=== PATIENT | female | born 1990 | race Caucasian/White ===

== ENCOUNTER 2019-12-22 05:15 | Inpatient (IN) | payer OTHER ==
[2019-12-22] MEDS ORDERED: Sodium Chloride 0.9% 10 ML SDV IV PRN (05:19)
[2019-12-22] MEDS ORDERED: Citric Acid/Sodium Citrate Solution 30 ML Cup PO ONE (05:19)
[2019-12-22] MEDS ORDERED: Sodium Chloride 0.9% 10 ML Syringe FLUSH PRN (05:19)
[2019-12-22] MEDS ORDERED: ceFAZolin 2 GM in Premix Bag 1 BAG IV ONE (05:19)
[2019-12-22] MEDS ORDERED: Sodium Chloride 0.9% 2.5 ML Syringe FLUSH PRN (05:19)
[2019-12-22] MEDS ORDERED: Oxytocin/0.9 % Sodium Chloride 30 UNIT/500 ML BAG IV SCH (05:30)
[2019-12-22] MEDS: Lactated Ringers 1,000 ML IV SCH ×2 (06:00→07:17)
[2019-12-22] MEDS ORDERED: Morphine PF 10 MG/10 ML SDV ONE (07:10)
[2019-12-22] MEDS ORDERED: Ondansetron 4 MG/2 ML SDV ONE (07:15)
[2019-12-22] MEDS ORDERED: Sodium Chloride 0.9% 20 ML ONE (07:15)
[2019-12-22] MEDS ORDERED: Oxytocin 10 Units/1 ML SDV ONE (07:15)
[2019-12-22] MEDS ORDERED: ceFAZolin 1 GM Vial ONE (07:15)
[2019-12-22] MEDS ORDERED: Ketorolac 30 MG/ML SDV ONE (07:15)
[2019-12-22] MEDS ORDERED: Phenylephrine 1% 10 MG/ML SDV ONE (07:26)
[2019-12-22] MEDS ORDERED: Famotidine 20 MG/2 ML SDV IVPUSH ONE (07:30)
[2019-12-22] MEDS ORDERED: Metoclopramide 10 MG/2 ML SDV IVPUSH ONE (07:30)
[2019-12-22] MEDS ORDERED: Citric Acid/Sodium Citrate Solution 30 ML Cup ONE (07:36)
--- NOTE | 2019-12-22 07:41 | PCM.PREANE ---
Preanesthetic Assessment - Anesthesia/Transfusion/Family Hx Anesthesia History: Prior Anesthesia Without Reaction Family History of Anesthesia Reaction: No Transfusion History: No Prior Transfusion(s) - Review of Systems General: No Symptoms Pulmonary: No Symptoms Cardiovascular: No Symptoms Gastrointestinal: No Symptoms Neurological: No Symptoms Other: Reports: None - Physical Assessment NPO Status Date: 12/21/19 Height: 5 ft 5 in Weight: 87.997 kg ASA Class: 2 Mental Status: Alert & Oriented x3 Airway Class: Mallampati = 1 Dentition: Reports: Normal Dentition ROM/Head Extension: Full Lungs: Clear to Auscultation, Normal Respiratory Effort Cardiovascular: Regular Rate, Regular Rhythm - Lab Values: Laboratory Last Values WBC 5.87 K/uL (4.0-11.0) 12/22/19 05:45 RBC 4.50 M/uL (4.30-5.90) 12/22/19 05:45 Hgb 12.3 g/dL (12.0-16.0) 12/22/19 05:45 Hct 37.0 % (36.0-46.0) 12/22/19 05:45 MCV 82.2 fL (80.0-98.0) 12/22/19 05:45 MCH 27.3 pg (27.0-32.0) 12/22/19 05:45 MCHC 33.2 g/dL (31.0-37.0) 12/22/19 05:45 RDW Std Deviation 37.2 fl (28.0-62.0) 12/22/19 05:45 RDW Coeff of Erica 12 % (11.0-15.0) 12/22/19 05:45 Plt Count 161 K/uL (150-400) 12/22/19 05:45 MPV 11.50 fL (7.40-12.00) 12/22/19 05:45 Nucleated RBC % 0.0 /100WBC 12/22/19 05:45 Nucleated RBCs # 0 K/uL 12/22/19 05:45 Blood Type A POSITIVE 12/22/19 05:45 Antibody Screen NEGATIVE 12/22/19 05:45 - Allergies Allergies/Adverse Reactions: Allergies Allergy/AdvReac Type Severity Reaction Status Date / Time silver sulfadiazine Allergy to burn Verified 12/19/19 09:36 [From Silvadene] "hurt worse" - Blood Blood Available: No - Anesthesia Plan Pre-Op Medication Ordered: None - Acknowledgements Anesthesia Type Planned: Spinal Pt an Appropriate Candidate for the Planned Anesthesia: Yes Alternatives and Risks of Anesthesia Discussed w Pt/Guardian: Yes Pt/Guardian Understands and Agrees with Anesthesia Plan: Yes PreAnesthesia Questionnaire HEENT History: Reports: None Cardiovascular History: Reports: None Other Cardiovascular History: was hypertensive during labor with last Respiratory History: Reports: None Gastrointestinal History: Reports: GERD Other Gastrointestinal History: during Genitourinary History: Reports: None [employer] History: Reports: Musculoskeletal History: Reports: Fracture Other Musculoskeletal History: hx of fx arm Neurological History: Reports: None Psychiatric History: Reports: None Endocrine/Metabolic History: Reports: Obesity/BMI 30+ Hematologic History: Reports: None Immunologic History: Reports: None Oncologic (Cancer) History: Reports: None Dermatologic History: Reports: None - Infectious Disease History Infectious Disease History: Reports: Chicken Pox - Past Surgical History Head Surgeries/Procedures: Reports: None HEENT Surgical History: Reports: Oral Surgery, Other (See Below) Other HEENT Surgeries/Procedures: wisdom teeth removal as teenager Respiratory Surgical History: Reports: None Female Surgical History: Reports: Section Neurological Surgical History: Reports: None Musculoskeletal Surgical History: Reports: None Oncologic Surgical History: Reports: None Dermatological Surgical History: Reports: None - SUBSTANCE USE Smoking Status *Q: Never Smoker Second Hand Smoke Exposure: No - HOME MEDS Home Medications: Home Meds L.acidoph,Paracasei, B.lactis [Probiotic] 1 cap PO DAILY 01/06/16 [History] Pnv No.95/Ferrous Fum/Folic AC [ Tablet] 1 tab PO DAILY 01/06/16 [History] - CURRENT (IN HOUSE) MEDS Current Meds: Current Medications Oxytocin/Sodium Chloride (Oxytocin 30 Unit/500 Ml-Ns) 30 unit in 500 mls @ 250 mls/hr IV TITRATE JORGE Lactated Ringer's (Ringers, Lactated) 1,000 mls @ 500 mls/hr IV BOLUS JORGE Last Admin: 12/22/19 07:17 Dose: 999 mls/hr Documented by: Sodium Chloride (Saline Flush) 10 ml FLUSH ASDIRECTED PRN PRN Reason: Keep Vein Open Sodium Chloride (Saline Flush) 2.5 ml FLUSH ASDIRECTED PRN PRN Reason: Keep Vein Open Sodium Chloride (Normal Saline) 10 ml IV ASDIRECTED PRN PRN Reason: IV Use Discontinued Medications Cefazolin Sodium (Ancef) Confirm Administered Dose 2 gm .ROUTE .STK-MED ONE Stop: 12/22/19 07:16 Citric Acid/Sodium Citrate (Bicitra Solution) 30 ml PO ONETIME ONE Stop: 12/22/19 05:20 Citric Acid/Sodium Citrate (Bicitra Solution) Confirm Administered Dose 30 ml .ROUTE .STK-MED ONE Stop: 12/22/19 07:37 Famotidine (Pepcid) 20 mg IVPUSH ONETIME ONE Stop: 12/22/19 07:31 Cefazolin Sodium/Dextrose 2 gm (/ Premix) 50 mls @ 100 mls/hr IV ONETIME ONE Stop: 12/22/19 05:48 Sodium Chloride (Normal Saline) Confirm Administered Dose 20 mls @ as directed .ROUTE .STK-MED ONE Stop: 12/22/19 07:16 Ketorolac Tromethamine (Toradol) Confirm Administered Dose 30 mg .ROUTE .STK-MED ONE Stop: 12/22/19 07:16 Metoclopramide HCl (Reglan) 10 mg IVPUSH ONETIME ONE Stop: 12/22/19 07:31 Morphine Sulfate (Duramorph Pf) Confirm Administered Dose 10 mg .ROUTE .STK-MED ONE Stop: 12/22/19 07:11 Ondansetron HCl (Zofran) Confirm Administered Dose 4 mg .ROUTE .STK-MED ONE Stop: 12/22/19 07:16 Oxytocin (Pitocin) Confirm Administered Dose 20 unit .ROUTE .STK-MED ONE Stop: 12/22/19 07:16 Phenylephrine HCl (Marbin-Synephrine) Confirm Administered Dose 10 mg .ROUTE .STK- MED ONE Stop: 12/22/19 07:27
[2019-12-22] MEDS ORDERED: Nalbuphine 10 MG/1 ML Vial IVPUSH PRN (07:42)
[2019-12-22] MEDS ORDERED: fentaNYL 100 MCG/2 ML SDV IVPUSH PRN (07:42)
[2019-12-22] MEDS ORDERED: Acetaminophen/oxyCODONE 325-5 MG Tab PO PRN ×3 (07:42→09:17)
[2019-12-22] MEDS: Ketorolac 30 MG/ML SDV IVPUSH SCH ×3 (09:15→20:50)
[2019-12-22] MEDS ORDERED: Misoprostol 200 MCG Tab RECTAL PRN (09:17)
[2019-12-22] MEDS ORDERED: Lanolin 100% Cream 7 GM Tube TOP PRN (09:17)
[2019-12-22] MEDS ORDERED: diphenhydrAMINE 50 MG/ML SDV IVPUSH PRN (09:17)
[2019-12-22] MEDS ORDERED: Ibuprofen 800 MG Tab PO PRN (09:17)
[2019-12-22] MEDS ORDERED: Bisacodyl 10 MG Supp RECTAL PRN (09:17)
[2019-12-22] MEDS ORDERED: Ondansetron 4 MG/2 ML SDV IVPUSH PRN (09:17)
[2019-12-22] MEDS ORDERED: Methylergonovine 0.2 MG/1 ML Amp IM PRN (09:17)
[2019-12-22] MEDS ORDERED: Tranexamic Acid 1,000 MG in Sodium Chloride 0.9% 100 ML IV PRN (09:17)
[2019-12-22] MEDS ORDERED: Oxytocin 10 Units/1 ML SDV IM PRN (09:17)
[2019-12-22] MEDS ORDERED: Lactated Ringers 1,000 ML IV SCH (09:30)
[2019-12-22] MEDS ORDERED: Oxytocin/Lactated Ringers 30 UNIT/500 ML BAG IV SCH (09:30)
--- NOTE | 2019-12-22 09:38 | PCM.OPNOTE ---
<Maria Esther Tillman - Last Filed: 12/22/19 09:19> - General Post-Op/Procedure Note Date of Surgery/Procedure: 12/22/19 Operative Procedure(s): Pre Op Diagnosis: 29yo at 39w4d. history of caesarean delivery x2 Post-Op Diagnosis: same Anesthesia Technique: Spinal Primary Surgeon: Nelly Montejo Anesthesia Provider: Nestor Birmingham Director Of Product Design: Maria Esther Titus (MS4) Fluid Replacement, Intraop: 800 Output, Urine Amount: 200 EBL in mLs: 700 Complications: none known Condition: Good Free Text/Narrative:: apgars 9 and 9 at 1 and 5 min respectively <Nelly Montejo - Last Filed: 12/22/19 09:28> - General Post-Op/Procedure Note Operative Procedure(s): Repeat low-transverse section Findings: Live male infant, Apgars 9/9, weight 3170g Normal-appearing uterus, ovaries, tubes Pathology: Placenta, cord blood Output, Urine Amount: 300 Free Text/Narrative:: Intake & Output 12/21/19 12/22/19 12/22/19 22:59 06:59 14:59 Intake Total 800 Output Total 200 Balance 600 2g IV Ancef for antibiotic prophylaxis Qi placed on uterine serosal bleeding [facility] #[id number]
--- NOTE | 2019-12-22 09:51 | PCM.POSTAN ---
POST ANESTHESIA ASSESSMENT - VITAL SIGNS Vital Signs: Last Vital Signs Temp 36.1 C 12/22/19 09:31 Pulse 64 12/22/19 09:45 Resp 10 L 12/22/19 09:45 BP 112/50 L 12/22/19 09:45 Pulse Ox 96 12/22/19 09:45 - RESPIRATORY Respiratory Status: Respiratory Rate WNL - CARDIOVASCULAR CV Status: Pulse Rate WNL - GASTROINTESTINAL GI Status: No Symptoms - POST OP HYDRATION Hydration Status: Adequate & Stable
--- NOTE | 2019-12-22 10:22 | OR ---
SURGEON: Nelly Montejo MD DATE OF PROCEDURE: 12/22/2019 PREOPERATIVE DIAGNOSES: 1. A 29-year-old, G3, P2-0-0-2, at 39 weeks and 4 days' gestation. 2. History of delivery x2. POSTOPERATIVE DIAGNOSES: 1. A 29-year-old, G3, P2-0-0-2, at 39 weeks and 4 days' gestation. 2. History of delivery x2. PROCEDURE: Repeat low transverse section. PRIMARY SURGEON: Nelly Montejo MD. LAB SUPPORT SERVICE TECH: Maria Esther Romeo, medical student. ANESTHESIA: Spinal by Dr. Birmingham. ESTIMATED BLOOD LOSS: 700 mL. IV FLUIDS: 800 mL LR. URINE OUTPUT: 300 mL clear yellow urine. MEDICATIONS: 2 g Ancef IV. FINDINGS: Live male infant in cephalic presentation. score of 9 and 9 at 1 and 5 minutes respectively. Weight 3170 g. Normal-appearing uterus, ovaries, and tubes. INDICATIONS: This is a 29-year-old G3, P2-0-0-2, who presented at 39 weeks and 4 days' gestation for planned repeat delivery. Prior to surgery, the risks and benefits of the surgery were reviewed with the patient and she voiced understanding and agreed to proceed. DESCRIPTION OF PROCEDURE: The patient was taken to the operating room where spinal anesthesia was obtained. She was placed in a dorsal supine position with a leftward tilt. A Guzman catheter was placed and she was prepared and draped in normal sterile fashion. A Pfannenstiel skin incision was made using a prior scar and carried through to the underlying layer of fascia with a scalpel. The fascia was incised in the midline and the incision extended laterally with curved Odell scissors. The superior aspect of the fascial incision was grasped with Andres clamps, elevated, and underlying rectus muscles dissected off bluntly and with curved Odell scissors. In a similar fashion, the inferior aspect of the fascial incision was grasped with Andres clamps, elevated, and underlying rectus muscles dissected off bluntly and with curved Odell scissors. The peritoneum was identified in the midline and entered with a hemostat. The peritoneal incision was extended using manual traction and Fabio retractor was placed. A bladder flap was created in the usual manner. A low uterine hysterotomy was created with a scalpel. The hysterotomy was extended with manual traction. Artificial rupture of membranes occurred with clear fluid noted. The head was then delivered atraumatically followed by shoulders and remainder of the body. After approximately 30 seconds, the cord was clamped and cut. The infant was handed off to the awaiting nurse. The placenta then delivered with uterine massage and gentle traction on the cord. The uterus was exteriorized and cleared of all clots and debris. The uterine incision was repaired with a running locked stitch of 0 Vicryl suture. A 2nd stitch of the same suture was used to imbricate. The gutters were cleared of all clots. The uterus was returned to the abdomen and hysterotomy inspected. Bleeding at the left apex was noted. [id number] suture was placed to obtain hemostasis. Serosal bleeding was noted throughout the entire hysterotomy. Qi was placed on the serosal bleeding. Hemostasis was obtained. Fascia was closed with a running stitch of 0 Vicryl suture. The subcutaneous tissue was closed with a running stitch of 3-0 Vicryl suture. The skin was closed with 4-0 Monocryl in a subcuticular fashion. All sponge, lap, and needle counts were correct. The patient and tolerated the delivery well. [id number] / MODL /[id number]
[2019-12-22] MEDS: Docusate Sodium 100 MG Cap PO SCH (20:52)
[2019-12-23] MEDS: Ketorolac 30 MG/ML SDV IVPUSH SCH ×2 (03:23→09:00)
--- NOTE | 2019-12-23 07:50 | PCM48HPAN ---
Post Anesthesia Note - EVALUATION WITHIN 48HRS OF ANESTHETIC Vital Signs in Normal Range: Yes Patient Participated in Evaluation: Yes Respiratory Function Stable: Yes Airway Patent: Yes Cardiovascular Function Stable: Yes Hydration Status Stable: Yes Pain Control Satisfactory: Yes Nausea and Vomiting Control Satisfactory: Yes Mental Status Recovered: Yes Vital Signs: Last Vital Signs Temp 36.3 C 12/23/19 04:25 Pulse 69 12/23/19 06:00 Resp 16 12/23/19 06:00 BP 130/76 12/23/19 04:25 Pulse Ox 97 12/23/19 06:00
[2019-12-23] MEDS: Docusate Sodium 100 MG Cap PO SCH (08:27)
--- NOTE | 2019-12-23 08:31 | PCM.PNPP ---
<Maria Esther Tillman - Last Filed: 12/23/19 08:31> - General Info Date of Service: 12/23/19 Admission Dx/Problem (Free Text): POD1 s/p repeat Subjective Update: pain 10/26, managed with percocet. amubulating and urinating well. nausea after spinal was better by 6pm yesterday. eating fine. going well. Functional Status: Reports: Pain Controlled, Tolerating Diet, Ambulating, Urinating - Review of Systems General: Reports: No Symptoms HEENT: Reports: No Symptoms Pulmonary: Reports: No Symptoms Cardiovascular: Reports: No Symptoms Gastrointestinal: Reports: Flatus Genitourinary: Reports: No Symptoms Musculoskeletal: Reports: No Symptoms Skin: Reports: No Symptoms Neurological: Reports: No Symptoms Psychiatric: Reports: No Symptoms - General Info Date of Service: 12/23/19 - Patient Data Vital Signs - Most Recent: Last Vital Signs Temp 97.3 F 12/23/19 08:00 Pulse 66 12/23/19 08:00 Resp 12 12/23/19 08:00 BP 118/60 12/23/19 08:00 Pulse Ox 98 12/23/19 08:00 Weight - Most Recent: 87.997 kg I&O - Last 24 Hours: Intake & Output 12/22/19 12/23/19 12/23/19 22:59 06:59 14:59 Intake Total 820 Output Total 320 Balance 500 Lab Results - Last 24 Hours: Laboratory Results - last 24 hr 12/23/19 Range/Units 05:25 Hgb 10.0 L (12.0-16.0) g/dL Hct 30.1 L (36.0-46.0) % Med Orders - Current: Current Medications Bisacodyl (Dulcolax) 10 mg RECTAL ONETIME PRN PRN Reason: Constipation Diphenhydramine HCl (Benadryl) 25 mg IVPUSH Q6H PRN PRN Reason: Itching or Nausea Docusate Sodium (Colace) 100 mg PO BID JORGE Last Admin: 12/22/19 20:52 Dose: 100 mg Documented by: Emollient Ointment (Lansinoh Hpa) 0 gm TOP ASDIRECTED PRN PRN Reason: Sore Nipples Last Admin: 12/22/19 20:52 Dose: 1 gram Documented by: Oxytocin/Sodium Chloride (Oxytocin 30 Unit/500 Ml-Ns) 30 unit in 500 mls @ 250 mls/hr IV TITRATE JORGE Lactated Ringer's (Ringers, Lactated) 1,000 mls @ 500 mls/hr IV BOLUS [facility] Last Admin: 12/22/19 07:17 Dose: 999 mls/hr Documented by: Lactated Ringer's (Ringers, Lactated) 1,000 mls @ 125 mls/hr IV ASDIRECTED [facility] Last Admin: 12/22/19 13:23 Dose: 125 mls/hr Documented by: Oxytocin/Lactated Ringer's (Pitocin In Lr 30 Units/500 Ml) 30 unit in 500 mls @ 999 mls/hr IV TITRATE [facility]; Protocol Tranexamic Acid 1,000 mg/ (Sodium Chloride) 110 mls @ 660 mls/hr IV ONETIME PRN PRN Reason: Bleeding Ibuprofen (Motrin) 800 mg PO Q8H PRN PRN Reason: mild pain or fever Ketorolac Tromethamine (Toradol) 30 mg IVPUSH Q6H [facility] Stop: 12/23/19 09:31 Last Admin: 12/23/19 03:23 Dose: 30 mg Documented by: Methylergonovine Maleate (Methergine) 0.2 mg IM ONETIME PRN PRN Reason: Excessive Vaginal Bleeding Misoprostol (Cytotec) 1,000 mcg RECTAL ONETIME PRN PRN Reason: excessive bleeding Ondansetron HCl (Zofran) 4 mg IVPUSH Q4H PRN PRN Reason: Nausea/Vomiting Oxycodone/Acetaminophen (Percocet 325-5 Mg) 1 tab PO ONETIME PRN PRN Reason: Pain (moderate 4-6) Oxycodone/Acetaminophen (Percocet 325-5 Mg) 1 tab PO Q4H PRN PRN Reason: Pain (moderate 4-6) Oxycodone/Acetaminophen (Percocet 325-5 Mg) 2 tab PO Q4H PRN PRN Reason: Pain (moderate 4-6) Oxytocin (Pitocin) 10 unit IM ASDIRECTED PRN PRN Reason: Excessive Vaginal Bleeding Sodium Chloride (Saline Flush) 10 ml FLUSH ASDIRECTED PRN PRN Reason: Keep Vein Open Sodium Chloride (Saline Flush) 2.5 ml FLUSH ASDIRECTED PRN PRN Reason: Keep Vein Open Sodium Chloride (Normal Saline) 10 ml IV ASDIRECTED PRN PRN Reason: IV Use Discontinued Medications Cefazolin Sodium (Ancef) Confirm Administered Dose 2 gm .ROUTE .STK-MED ONE Stop: 12/22/19 07:16 Citric Acid/Sodium Citrate (Bicitra Solution) 30 ml PO ONETIME ONE Stop: 12/22/19 05:20 Last Admin: 12/22/19 07:40 Dose: 30 ml Documented by: Citric Acid/Sodium Citrate (Bicitra Solution) Confirm Administered Dose 30 ml .ROUTE .STK-MED ONE Stop: 12/22/19 07:37 Last Admin: 12/22/19 12:10 Dose: Not Given Documented by: Famotidine (Pepcid) 20 mg IVPUSH ONETIME ONE Stop: 12/22/19 07:31 Last Admin: 12/22/19 08:00 Dose: 20 mg Documented by: Fentanyl (Sublimaze) 50 mcg IVPUSH Q5M PRN PRN Reason: Pain (severe 7-10) Stop: 12/23/19 07:43 Cefazolin Sodium/Dextrose 2 gm (/ Premix) 50 mls @ 100 mls/hr IV ONETIME ONE Stop: 12/22/19 05:48 Last Admin: 12/22/19 19:39 Dose: Not Given Documented by: Sodium Chloride (Normal Saline) Confirm Administered Dose 20 mls @ as directed .ROUTE .STK-MED ONE Stop: 12/22/19 07:16 Ketorolac Tromethamine (Toradol) Confirm Administered Dose 30 mg .ROUTE .STK-MED ONE Stop: 12/22/19 07:16 Metoclopramide HCl (Reglan) 10 mg IVPUSH ONETIME ONE Stop: 12/22/19 07:31 Last Admin: 12/22/19 08:05 Dose: 10 mg Documented by: Morphine Sulfate (Duramorph Pf) Confirm Administered Dose 10 mg .ROUTE .STK-MED ONE Stop: 12/22/19 07:11 Nalbuphine HCl (Nubain) 2.5 mg IVPUSH Q3H PRN PRN Reason: Pruritis Stop: 12/23/19 07:43 Ondansetron HCl (Zofran) Confirm Administered Dose 4 mg .ROUTE .STK-MED ONE Stop: 12/22/19 07:16 Oxytocin (Pitocin) Confirm Administered Dose 20 unit .ROUTE .STK-MED ONE Stop: 12/22/19 07:16 Phenylephrine HCl (Marbin-Synephrine) Confirm Administered Dose 10 mg .ROUTE .STK- MED ONE Stop: 12/22/19 07:27 - Interaction Disposition, : [place] in Room with Family Infant Interaction: Holding Infant Feeding: Breastfed ; Nursed Well Support Person: - Recovery Exam Fundal Tone: Firm Lochia Amount: Small Lochia Color: Rubra/Red Episiotomy/Laceration: None Bladder Status: Voiding - Exam General: Alert, Oriented, No Acute Distress Lungs: Clear to Auscultation, Normal Respiratory Effort Cardiovascular: Regular Rate, Regular Rhythm GI/Abdominal Exam: Soft, No Distention Extremities: Normal Range of Motion Skin: Warm, Dry Wound/Incisions: Dressing Dry and Intact Neurological: Normal Gait, Normal Speech Psy/Mental Status: Alert, Normal Affect, Normal Mood - Problem List & Annotations (1) Status post repeat low transverse section SNOMED Code(s): 835787482, 38163133, 333294373, 623749356, 244397018 Code(s): Z98.891 - HISTORY OF UTERINE SCAR FROM PREVIOUS SURGERY Status: Acute Current Visit: Yes - Problem List Review Problem List Initiated/Reviewed/Updated: Yes - Assessment Assessment:: 29yof s/p repeat POD1. - Plan Plan:: -routine post care -pain control PRN per orders -continue to ambulate and eat as tolerated <Nelly Montejo - Last Filed: 12/23/19 10:25> - General Info Subjective Update: Ambulating and voiding without difficulty. - Patient Data Vital Signs - Most Recent: Last Vital Signs Temp 36.3 C 12/23/19 08:00 Pulse 66 12/23/19 08:00 Resp 12 12/23/19 08:00 BP 118/60 12/23/19 08:00 Pulse Ox 98 12/23/19 08:00 I&O - Last 24 Hours: Intake & Output 12/22/19 12/23/19 12/23/19 22:59 06:59 14:59 Intake Total 820 Output Total 320 Balance 500 Lab Results - Last 24 Hours: Laboratory Results - last 24 hr 12/23/19 Range/Units 05:25 Hgb 10.0 L (12.0-16.0) g/dL Hct 30.1 L (36.0-46.0) % Med Orders - Current: Current Medications Bisacodyl (Dulcolax) 10 mg RECTAL ONETIME PRN PRN Reason: Constipation Diphenhydramine HCl (Benadryl) 25 mg IVPUSH Q6H PRN PRN Reason: Itching or Nausea Docusate Sodium (Colace) 100 mg PO BID [facility] Last Admin: 12/23/19 08:27 Dose: 100 mg Documented by: Emollient Ointment (Lansinoh Hpa) 0 gm TOP ASDIRECTED PRN PRN Reason: Sore Nipples Last Admin: 12/22/19 20:52 Dose: 1 gram Documented by: Oxytocin/Sodium Chloride (Oxytocin 30 Unit/500 Ml-Ns) 30 unit in 500 mls @ 250 mls/hr IV TITRATE JORGE Lactated Ringer's (Ringers, Lactated) 1,000 mls @ 500 mls/hr IV BOLUS [facility] Last Admin: 12/22/19 07:17 Dose: 999 mls/hr Documented by: Lactated Ringer's (Ringers, Lactated) 1,000 mls @ 125 mls/hr IV ASDIRECTED [facility] Last Admin: 12/22/19 13:23 Dose: 125 mls/hr Documented by: Oxytocin/Lactated Ringer's (Pitocin In Lr 30 Units/500 Ml) 30 unit in 500 mls @ 999 mls/hr IV TITRATE [facility]; Protocol Tranexamic Acid 1,000 mg/ (Sodium Chloride) 110 mls @ 660 mls/hr IV ONETIME PRN PRN Reason: Bleeding Ibuprofen (Motrin) 800 mg PO Q8H PRN PRN Reason: mild pain or fever Methylergonovine Maleate (Methergine) 0.2 mg IM ONETIME PRN PRN Reason: Excessive Vaginal Bleeding Misoprostol (Cytotec) 1,000 mcg RECTAL ONETIME PRN PRN Reason: excessive bleeding Ondansetron HCl (Zofran) 4 mg IVPUSH Q4H PRN PRN Reason: Nausea/Vomiting Oxycodone/Acetaminophen (Percocet 325-5 Mg) 1 tab PO ONETIME PRN PRN Reason: Pain (moderate 4-6) Oxycodone/Acetaminophen (Percocet 325-5 Mg) 1 tab PO Q4H PRN PRN Reason: Pain (moderate 4-6) Oxycodone/Acetaminophen (Percocet 325-5 Mg) 2 tab PO Q4H PRN PRN Reason: Pain (moderate 4-6) Oxytocin (Pitocin) 10 unit IM ASDIRECTED PRN PRN Reason: Excessive Vaginal Bleeding Sodium Chloride (Saline Flush) 10 ml FLUSH ASDIRECTED PRN PRN Reason: Keep Vein Open Sodium Chloride (Saline Flush) 2.5 ml FLUSH ASDIRECTED PRN PRN Reason: Keep Vein Open Sodium Chloride (Normal Saline) 10 ml IV ASDIRECTED PRN PRN Reason: IV Use Discontinued Medications Cefazolin Sodium (Ancef) Confirm Administered Dose 2 gm .ROUTE .STK-MED ONE Stop: 12/22/19 07:16 Citric Acid/Sodium Citrate (Bicitra Solution) 30 ml PO ONETIME ONE Stop: 12/22/19 05:20 Last Admin: 12/22/19 07:40 Dose: 30 ml Documented by: Citric Acid/Sodium Citrate (Bicitra Solution) Confirm Administered Dose 30 ml .ROUTE .STK-MED ONE Stop: 12/22/19 07:37 Last Admin: 12/22/19 12:10 Dose: Not Given Documented by: Famotidine (Pepcid) 20 mg IVPUSH ONETIME ONE Stop: 12/22/19 07:31 Last Admin: 12/22/19 08:00 Dose: 20 mg Documented by: Fentanyl (Sublimaze) 50 mcg IVPUSH Q5M PRN PRN Reason: Pain (severe 7-10) Stop: 12/23/19 07:43 Cefazolin Sodium/Dextrose 2 gm (/ Premix) 50 mls @ 100 mls/hr IV ONETIME ONE Stop: 12/22/19 05:48 Last Admin: 12/22/19 19:39 Dose: Not Given Documented by: Sodium Chloride (Normal Saline) Confirm Administered Dose 20 mls @ as directed .ROUTE .STK-MED ONE Stop: 12/22/19 07:16 Ketorolac Tromethamine (Toradol) Confirm Administered Dose 30 mg .ROUTE .STK-MED ONE Stop: 12/22/19 07:16 Ketorolac Tromethamine (Toradol) 30 mg IVPUSH Q6H JORGE Stop: 12/23/19 09:31 Last Admin: 12/23/19 09:00 Dose: 30 mg Documented by: Metoclopramide HCl (Reglan) 10 mg IVPUSH ONETIME ONE Stop: 12/22/19 07:31 Last Admin: 12/22/19 08:05 Dose: 10 mg Documented by: Morphine Sulfate (Duramorph Pf) Confirm Administered Dose 10 mg .ROUTE .STK-MED ONE Stop: 12/22/19 07:11 Nalbuphine HCl (Nubain) 2.5 mg IVPUSH Q3H PRN PRN Reason: Pruritis Stop: 12/23/19 07:43 Ondansetron HCl (Zofran) Confirm Administered Dose 4 mg .ROUTE .STK-MED ONE Stop: 12/22/19 07:16 Oxytocin (Pitocin) Confirm Administered Dose 20 unit .ROUTE .STK-MED ONE Stop: 12/22/19 07:16 Phenylephrine HCl (Marbin-Synephrine) Confirm Administered Dose 10 mg .ROUTE .STK- MED ONE Stop: 12/22/19 07:27 - Exam Wound/Incisions: Healing Well, No Drainage - Problem List & Annotations (1) Status post repeat low transverse section SNOMED Code(s): 019113580, 69415673, 191531518, 453092536, 918689724 Code(s): Z98.891 - HISTORY OF UTERINE SCAR FROM PREVIOUS SURGERY Status: Acute Current Visit: Yes - My Orders Last 24 Hours: My Active Orders 12/22/19 09:30 Lactated Ringers [Ringers, Lactated] 1,000 ml IV ASDIRECTED Oxytocin/Lactated Ringers [Pitocin in LR 30 Units/500 ML] 30 unit in 500 ml IV TITRATE 12/22/19 Lunch Regular Diet [DIET] 12/22/19 21:00 Docusate Sodium [Colace] 100 mg PO BID - Plan Plan:: I have reviewed the above and agree. Patient meeting all milestones and is interested in possible discharge home today. Reviewed discharge instructions.
[2019-12-23 11:40] VITALS: BP 126/58; PULSE 77
== END 2019-12-23 16:30 | disposition home or self-care (01) | DRG 788 ==
LOC: MW.OB 05:15
PROVIDERS: ADMIT Obstetrics & Gynecology; ATTEND Obstetrics & Gynecology
PROC: 10D00Z1 Extraction of Products of Conception, Low, Open Approach (ICD-10-PCS; principal; 2019-12-22)
DX: O34.211 Maternal care for low transverse scar from previous cesarean delivery (principal); Z37.0 Single live birth; Z3A.39 39 weeks gestation of pregnancy
CPT/HCPCS: 36415; 59025; 85014; 85018; 85027; 86592; 86850; 86900; 86901; A9270-GY; J0690; J1885; J2270; J2370; J2405; J2590; J2765; J3490; J7120